=== PATIENT | female | born 1955 | race Caucasian/White ===

== ENCOUNTER 2020-04-10 06:30 | Inpatient (IN) ==
[~2020-04-10 06:30] MED LIST: *HR* HYDROmorphone (PF) 1 MG/ML SYRINGE IVP PRN; *HR* HYDROmorphone 2 MG TABLET PO PRN; *HR* Labetalol 20 MG/4 ML SYRINGE IVP PRN; *HR* OxyCODONE Immed Rel 5 MG TABLET PO PRN; *HR* Promethazine 25 MG/ML VIAL IVP PRN
[2020-04-10] MEDS ORDERED: Acetaminophen IV 1,000 MG/100 ML INFUS..BTL IVPB ONE (07:00)
[2020-04-10] MEDS ORDERED: Famotidine 20 MG/2 ML VIAL IVP ONE (07:00)
[2020-04-10] MEDS ORDERED: Pregabalin 75 MG CAPSULE PO ONE (07:00)
[2020-04-10] MEDS ORDERED: Ringers Solution, Lactated 1,000 ML IVC SCH ×2 (07:15→12:21)
[2020-04-10] MEDS ORDERED: *HR* Midazolam HCl 2 MG/2 ML VIAL ONE (09:03)
[2020-04-10] MEDS ORDERED: *HR* FentaNYL (PF) 100 MCG/2 ML VIAL ONE (09:03)
[2020-04-10] MEDS ORDERED: Dexamethasone 4 MG/ML VIAL ONE (09:07)
[2020-04-10] MEDS ORDERED: Lidocaine -MPF 2% 2 ML VIAL ONE (09:07)
[2020-04-10] MEDS ORDERED: Ondansetron 4 MG/2 ML VIAL ONE (09:07)
[2020-04-10] MEDS ORDERED: Tranexamic Acid 1,000 MG/10 ML VIAL ONE (09:08)
[2020-04-10] MEDS ORDERED: Ethanol\\Acetic Acid\\Na Ace\\Ben 1,000 ML IRRIG.SOLN IR ONE (09:42)
[2020-04-10] MEDS ORDERED: Vancomycin 1,000 MG VIAL ONE (09:42)
[2020-04-10] MEDS ORDERED: *HR* PHENYLEPHRINE 1,000 MCG/10 ML SYRINGE IVP ONE (11:08)
[2020-04-10 12:21] LABS: Hematocrit 29.7 % (35.3-44.9)
[2020-04-10] MEDS ORDERED: *HR* Promethazine 25 MG/ML VIAL IVP PRN (12:21)
[2020-04-10] MEDS ORDERED: Naloxone 0.4 MG/ML INJ IVP PRN (12:21)
[2020-04-10] MEDS ORDERED: MOM Conc 10 ML UD.LIQ PO PRN (12:21)
[2020-04-10] MEDS ORDERED: Sennosides 8.6 MG TABLET PO PRN (12:21)
[2020-04-10] MEDS ORDERED: D5% in Water 1,000 ML IVC PRN (12:21)
[2020-04-10] MEDS ORDERED: *HR* Dextrose 50 % in Water (Vial) 50 ML VIAL IVP PRN (12:21)
[2020-04-10] MEDS ORDERED: HYDROcodone BIT/Homatropine 5 MG TABLET PO PRN (12:21)
[2020-04-10] MEDS ORDERED: *HR* OxyCODONE Immed Rel 5 MG TABLET PO PRN (12:21)
[2020-04-10] MEDS ORDERED: Ondansetron 4 MG/2 ML VIAL IVP PRN (12:21)
[2020-04-10] MEDS ORDERED: Dextrose Gel 15 GM/37.5 ML TUBE PO PRN ×2 (12:21)
[2020-04-10 12:22] LABS: Hemoglobin 8.9 g/dL (11.5-15.4)
[2020-04-10] MEDS: Insulin LISPRO 300 UNITS/3 ML VIAL SQ SCH ×2 (13:51→16:43)
[2020-04-10] MEDS: Multivit/Ca/Min/Fe/FA 1 TAB TABLET PO SCH (14:35)
[2020-04-10] MEDS: CeFAZolin 2 GM/120 ML BAG IVPB SCH (17:13)
[2020-04-10] MEDS: Ascorbic Acid 500 MG TABLET PO SCH (17:14)
[2020-04-10] MEDS ORDERED: Pregabalin 75 MG CAPSULE PO SCH (21:00)
[2020-04-10] MEDS ORDERED: Insulin LISPRO 300 UNITS/3 ML VIAL SQ SCH (21:00)
[2020-04-11] MEDS: CeFAZolin 2 GM/120 ML BAG IVPB SCH (00:46)
[2020-04-11 02:19] LABS: Basophils # 0.1 K/mcL (0.0-0.2); Basophils % 0.4 %; Eosinophils % 0.3 %; Hematocrit 31.3 % (35.3-44.9); Hemoglobin 9.9 g/dL (11.5-15.4); Immature Granulocytes % 0.3 % (0-4); Lymphocytes # 1.3 K/mcL (0.6-4.6); Lymphocytes % 10.7 %; Mean Corpuscular HGB Conc 31.6 g/dL (31.6-35.5); Mean Corpuscular Hemoglobin 27.3 pg (28.0-33.3); Mean Corpuscular Volume 86.2 fL (83.0-100.0); Mean Platelet Volume 10.1 fL (9.4-12.4); Monocytes # 0.8 K/mcL (0.0-1.3); Monocytes % 6.2 %; Platelet Count 285 K/mcL (140-400); Red Blood Count 3.63 M/mcL (3.82-4.97); Red Cell Distribution Width 14.7 % (11.5-14.5); Segmented Neutrophils % 82.1 %
[2020-04-11 02:21] LABS: Neutrophils # 10.3 K/mcL (1.6-8.9); White Blood Count 12.5 K/mcL (4.3-11.1)
[2020-04-11 02:39] LABS: BUN/Creatinine Ratio 13 (6-26); Blood Urea Nitrogen 14 mg/dL (8-23); Calcium 8.9 mg/dL (8.6-10.3); Carbon Dioxide 26 mEq/L (23-29); Chloride 108 mEq/L (98-107); Glucose 134 mg/dL (70-105); Osmolality,Calculated 294 (280-300); Potassium 4.2 mEq/L (3.5-5.1); Sodium 141 mEq/L (136-145); eGFR For African Americans > 60 (> 60); eGFR For Non-African Americans 51 (> 60)
[2020-04-11 06:34] VITALS: BP 129/82
[2020-04-11] MEDS: Ascorbic Acid 500 MG TABLET PO SCH (07:41)
[2020-04-11] MEDS: Multivit/Ca/Min/Fe/FA 1 TAB TABLET PO SCH (07:41)
[2020-04-11] MEDS: Insulin LISPRO 300 UNITS/3 ML VIAL SQ SCH (07:42)
[2020-04-11] MEDS ORDERED: Aspirin Enteric Coated 81 MG Tablet PO SCH (09:00)
== END 2020-04-11 12:00 | disposition home health service (06) | DRG 470 ==
LOC: SAMDAY 06:30 → 3NENU 12:11
PROVIDERS: ADMIT Orthopaedic Surgery; ATTEND Orthopaedic Surgery